=== PATIENT | female | born 1940 | race Caucasian/White ===

== ENCOUNTER 2024-10-15 16:40 | Emergency (ER) | payer MEDICARE, SELFPAY ==
[2024-10-15 16:42] VITALS: BP 123/72
[2024-10-15 16:47] VITALS: BP 123/72
[2024-10-15 17:00] VITALS: BP 112/68
[2024-10-15] MEDS: TYLENOL 650 MG PO (17:12)
[2024-10-15 17:17] LABS: % Basophils 0.7 % (0-2); % Eosinophils 0.1 % (0-6); % Immature Granulocytes 0.5 % (0-0.5); % Lymphocytes 4.1 % (20.5-51.1); % Monocytes 5.4 % (1.7-9.3); % Neutrophils 89.2 % (42.2-75.2); Absolute Basophils 0.1 10^3/uL (0-0.2); Absolute Immature Granulocytes 0.1 10^3/uL (0-0.05); Absolute Lymphocytes 0.5 10^3/uL (1.2-3.4); Absolute Monocytes 0.7 10^3/uL (0.1-0.6); Absolute Neutrophils 11.4 10^3/uL (1.4-6.5); Hematocrit 40.1 % (37.0-47.0); Hemoglobin 13.4 g/dL (12.0-16.0); Mean Corp Hgb Conc. 33.4 g/dL (33.0-37.0); Mean Corpuscular Hgb 31.3 pg (27.0-31.0); Mean Corpuscular Volume 93.7 fL (81.0-99.0); Mean Platelet Volume 9.5 fL (7.4-10.4); Nucleated Red Blood Cells % 0 %; Platelet Count 178 10^3/uL (130-400); Red Blood Cell Count 4.28 10^6/uL (4.20-5.40); White Blood Cell Count 12.8 10^3/uL (4.8-10.8)
[2024-10-15 17:30] LABS: COVID-19 Antigen Negative (Negative)
[2024-10-15 17:31] LABS: Lactic Acid 1.6 mmol/L (0.7-2.0)
[2024-10-15 17:32] LABS: ALT (SGPT) 29 U/L (0-35); AST (SGOT) 31 U/L (14-36); Albumin 3.8 g/dl (3.5-5.0); Alkaline Phosphatase 86 U/L (38-126); Blood Urea Nitrogen 28 mg/dl (7-17); Calcium 8.9 mg/dl (8.4-10.2); Carbon Dioxide 29 mmol/L (22-30); Chloride 101 mmol/L (98-107); Glucose 124 mg/dl (70-99); Potassium 3.8 mmol/L (3.5-5.1); Sodium 135 mmol/L (135-145); Total Bilirubin 0.9 mg/dl (0.2-1.3); Total CK 105 U/L (30-135); Total Protein 6.2 g/dl (6.3-8.2); eGFR > 60.00
[2024-10-15 18:00] VITALS: BP 105/64
--- NOTE | 2024-10-15 20:00 | EDRN ---
Report received, introduced myself to patient and family, did a straight cath for urine, also cleaned patient up prior to, slightly incontinent to stool, clean brief on and straight cath performed and emptied bladder, then patient went to CT
[2024-10-15 20:12] VITALS: BMI 24.6
[2024-10-15 20:27] LABS: Urine Albumin 1+ (Neg - Trace); Urine Bilirubin Negative (Negative); Urine Character Clear (Clear); Urine Color Yellow; Urine Glucose Negative (Negative); Urine Ketone Negative (Negative); Urine Leukocyte Negative (Negative); Urine Nitrite Negative (Negative); Urine Occult Blood Negative (Negative); Urine Specific Gravity 1.005 (<1.030); Urine Urobilinogen Negative (Neg - 1+)
[2024-10-15 20:36] LABS: Urine Red Blood Cell 0-2 /HPF (0-2); Urine Squamous Cell 0-2 /LPF (Few)
[2024-10-15 20:37] LABS: Urine White Cell 0-2 /HPF (0-5)
[2024-10-15 20:53] LABS: CKMB 1.1 ng/ml (0.0-3.4)
--- NOTE | 2024-10-15 21:00 | EDRN ---
Patient was able to ambulate without difficulty and tolerate oral fluids, Ivan is aware, patient to be discharged home.
--- NOTE | 2024-10-15 21:09 | ED.GENMED ---
History of Present Illness
General
Chief Complaint: Fall
Time Seen by Provider: 10/15/24 16:48
History of Present Illness
History of Present Illness:
83-year-old female presents to the emergency department for evaluation of confusion and a reported fall last night. She lives in independent living at [facility] and apparently fell in her bathroom, may have been down the ground for at least 8
to 12 hours. She is known to be febrile on arrival. Confused at baseline but markedly worse per [facility]. History is essentially unobtainable from the patient due to confusion
Review of Systems
Review of Systems
Allergies reviewed?: Yes
All Other Systems: ROS reviewed and negative except as documented in HPI and ROS
Phy Exam
Physical Exam
Physical Exam:
GEN: Ill-appearing, tremulous
HEENT: Oral mucosa dry, no scleral icterus
Cardiac: Tachycardic, regular
Lung: No respiratory distress, no tachypnea, lungs clear to auscultation bilaterally
Abdomen: Flat, nontender
MSK: No gross deformity or injuries
Skin: Good color, no pallor or jaundice, no rashes
Neuro: Alert, pleasantly confused, moving all extremities freely
Psych: Calm, cooperative
Sepsis
Sepsis Screening
Sepsis Assessment: Sepsis Ruled Out
Sepsis Screen
Sepsis Screen: Sepsis Ruled Out
Date: 10/15/24
Time: 23:39
Course
Orders/Labs/Results
Orders:
Orders
10/15/24 16:54
COVID-19 Antigen Urgent
Source: Nasal Swab
CPK Isoenzyme Urgent
Complete Blood Count/With Diff Urgent
Comprehensive Metabolic Panel Urgent
Lactic Acid Urgent
INF RAPID [Influenza A+B Rapid Molecular] Urgent
LEXI Source: Nasal Swab
Specimen Description:
10/15/24 16:56
ECG [Electrocardiogram (*1)] Urgent
Reason for Study: Other
Other Reason for Exam: fall
EKG- Treatment ONCE
10/15/24 17:07
CT Cervical Spine W/o Iv Contr Urgent
Comment:
Reason For Exam: unwitnessed fall
Acetaminophen [Tylenol] 650 mg PO NOW STA
10/15/24 17:08
CT Head W/o Iv Contrast Urgent
Comment:
Reason For Exam: unwitnessed fall
10/15/24 20:11
Urine Culture Reflexed from UA [Urinalysis Reflex To Culture] Urgent
Date Specimen was Collected: 10/15/24
Time Specimen was Collected: 17:08
Urine Microscopic Reflex Cult Urgent
Abnormal Lab Results
10/15/24 10/15/24
16:54 20:11
WBC 12.8 H 10^3/uL
(4.8-10.8)
MCH 31.3 H pg
(27.0-31.0)
Abs Immat Gran (auto) 0.1 H 10^3/uL
(0-0.05)
Absolute Neuts (auto) 11.4 H 10^3/uL
(1.4-6.5)
Absolute Lymphs (auto) 0.5 L 10^3/uL
(1.2-3.4)
Absolute Monos (auto) 0.7 H 10^3/uL
(0.1-0.6)
Neutrophils % 89.2 H %
(42.2-75.2)
Lymphocytes % 4.1 L %
(20.5-51.1)
BUN 28 H mg/dl
(7-17)
Glucose 124 H mg/dl
(70-99)
Total Protein 6.2 L g/dl
(6.3-8.2)
Urine Albumin (Reflex) 1+ A
(Neg - Trace)
10/15/24 16:54
10/15/24 16:54
Vital Signs
Initial and Last Documented VS:
Initial Vital Signs
Pulse Resp BP Pulse Ox
100 20 123/72 93
10/15/24 16:42 10/15/24 16:42 10/15/24 16:42 10/15/24 16:42
Last Documented Vital Signs
Temp Pulse Resp BP Pulse Ox
101.7 F H 94 14 105/64 94
10/15/24 16:52 10/15/24 18:00 10/15/24 18:00 10/15/24 18:00 10/15/24 18:00
MDM/Problems Addressed
MDM/Problems Addressed:
Patient's mental status dramatically improved with IV hydration and antipyretics. Urinalysis clear, lungs clear on exam. She did have vomiting and diarrhea yesterday thus likely viral GI source of fever. She was ambulated at time of discharge and
appeared quite well, daughter is comfortable with her being discharged and will stay with her for observation tonight
*Critical Care Note
Total Time (30-74mins, 75-104mins- exclusive of procedures): Not Applicable
ED Attending Note
-
Portions of this chart may have been created with voice recognition software.� Occasional wrong word or��sound alike� substitutions may have occurred due to the inherent limitations of voice recognition software.
Discharge Plan
Departure
Patient Disposition: Home (Routine Discharge)
Date of Disposition: 10/15/24
Time of Disposition: 21:09
Patient with high blood pressure during this ER visit?: No
Discharge Problem:
Gastroenteritis
Instructions: Viral gastroenteritis in adults
Referrals:
Gianna Veliz DO [Family Provider] -
Activity Restrictions/Additional Instructions:
Next dose of Tylenol can be given at a time after returning home, please consider giving this every 4-6 hours to control fevers
Push fluids and return to the emergency department if symptoms worsen
Interventions
Interventions:
*Risk Screen - Suicide Last Done: 10/15/24 21:42
*General Assessment Last Done: 10/15/24 16:42
*Neglect/Abuse Screening Last Done: 10/15/24 21:42
ED- Fall Risk Assessment Last Done: 10/15/24 16:55
*ED COVID-19 Vaccine History Last Done: 10/15/24 21:42
*Nursing Disposition Last Done: 10/15/24 21:42
ED-Musculoskeletal Assessment Last Done: 10/15/24 16:55
ED- Neurological Assessment Last Done: 10/15/24 16:55
ED-Skin Assessment Last Done: 10/15/24 16:55
Discharge Date and Time
Discharge Date/Time: 10/15/24 21:43
Print Language: [place]INGAP[place]
== END 2024-10-15 21:43 | disposition home or self-care (01) ==
LOC: EMR 16:40
PROVIDERS: Physician Assistant; EMERGENCY PHYSICIAN Emergency Medicine; FAMILY PHYSICIAN Internal Medicine
DX: K52.9 Noninfective gastroenteritis and colitis, unspecified (principal)
CPT/HCPCS: 99284; 70450; 72125; 80053; 81003; 81015; 82550; 82553; 83605; 85025; 87502; 87811; 93005

== ENCOUNTER 2024-12-03 01:23 | Emergency (ER) | payer MEDICARE, SELFPAY ==
[2024-12-03 01:28] VITALS: BP 132/104
[2024-12-03 01:52] VITALS: BMI 23.8
[2024-12-03] MEDS: LET TOPICAL ANESTHETIC GEL 6 ML TOPICAL (02:31)
[2024-12-03] MEDS: NSS 1000 IV (02:32)
[2024-12-03] MEDS: TYLENOL 1000 MG PO (02:32)
[2024-12-03 02:40] LABS: COVID-19 Antigen Positive (Negative)
--- NOTE | 2024-12-03 02:41 | ED.GENMED ---
History of Present Illness
General
Chief Complaint: Fever
Source: patient and family (2 daughters at bedside)
Exam Limitations: none
Time Seen by Provider: 12/03/24 01:53
Nursing documentation reviewed up to this point in time: agreed with
History of Present Illness
History of Present Illness:
This is an 84-year-old woman who resides at [facility]. She has history of dementia, hyperlipidemia, osteoarthritis. Remote history of left total hip replacement, spinal stimulator.
According to daughter she was noted to have mild cough that began yesterday, tonight her daughter was staying with her, she awoke to hear mild rustling and upon further investigation found that her mom had fallen out of bed.
She has history confusion but seems more confused tonight.
With fall out of bed she has suffered a large skin tear to her left anterior lower leg. She does not believe she struck her head. She takes no anticoagulants.
She does note mild cough, nasal congestion, admits to mild generalized headache, denies neck nor back pain, no chest pain, no shortness of breath. No abdominal pain, no nausea or vomiting, no diarrhea or constipation. She denies dysuria urgency
nor hematuria. No prior history of UTIs.
Upon arrival to the ED found to be febrile, 101.7 �F
Past History
Past History
ED Past Medical History: Hypercholesterolemia and Other (Dementia, osteoarthritis)
ED Past Surgical History: Gynecological (Hysterectomy), Orthopedic (Left total hip replacement, spine stimulator) and Other (Left inguinal hernia repair)
Social History
Tobacco: Non-smoker
Alcohol: None
Personal:
Living: assisted living ([facility])
Family History
Family History: Other (Noncontributory)
Phy Exam
Physical Exam
Physical Exam:
GENERAL: 84-year-old woman appears her stated age, awake and alert, pleasant, easily communicative, appears in no acute distress. Noted to be moderately febrile. Mild nasal, stuffy voice is noted. 2 daughters accompanying.
EYE: pupils equal and reactive. anicteric. The head is normocephalic, atraumatic.
NECK: Supple, nontender, no meningismus, no significant adenopathy.
ENT: posterior pharynx is clear, oral mucosa is moist. TM clear b/l, nares have moderately boggy turbinates with scant clear rhinorrhea.
CARDIAC: Regular rate and rhythm. no murmur.
LUNGS: Clear breath sounds bilaterally, no acute respiratory distress, no wheezes/rales/rhonchi
ABDOMEN: Soft, nondistended, without focal tenderness, no r/g, no cvat. normoactive BS.
NEUROLOGICAL: Alert and oriented x3, no focal neuro deficits. Motor strength is 5/5 bilaterally. Gross sensation is intact.
SKIN: Hot to touch and dry, normal color, no rash. Fair turgor.
MUSCULOSKELETAL: No C/C/E. peripheral pulses are full and equal b/l. There is a large, subcutaneous depth skin tear left anterior lower leg. No active bleeding. Moderate local tenderness to palpation. There is a subacute similar skin tear just
superior along the mid anterior lower leg with focal eschar in place.
PSYCH: Normal and appropriate interaction.
Course
Orders/Labs/Results
Orders:
Orders
12/03/24 02:02
0.9% Sodium Chloride 1000 ml [Nss] 1,000 ml IV BOLUS
Acetaminophen [Tylenol] 1,000 mg PO NOW STA
Lidocaine/Epinephrine/Tetracai [Let Topical Anesthetic Gel] 6 ml TOPICAL NOW STA
12/03/24 02:03
CT Head W/o Iv Contrast Urgent
Comment:
Reason For Exam: fall, confusion
CR Chest - 2 Views Urgent
Comment:
Reason For Exam: cough, fever
12/03/24 02:04
Lidocaine/Epinephrine/Tetracai [Let Topical Anesthetic Gel] 3 ml .ROUTE .[facility]
12/03/24 02:23
COVID-19 Antigen Urgent
Source: Nasal Swab
Complete Blood Count/With Diff Urgent
Comprehensive Metabolic Panel Urgent
Lactic Acid Urgent
Influenza A+B Rapid Molecular Urgent
LEXI Source: Nasal Swab
Specimen Description:
12/03/24 02:45
Blood Culture Q30M
LEXI Source: Blood/Venous
Specimen Description:
12/03/24 02:49
Blood Culture Q30M
LEXI Source: Blood/Venous
Specimen Description:
12/03/24 02:52
Lidocaine/Epinephrine/Tetracai [Let Topical Anesthetic Gel] 3 ml .ROUTE .[facility]
12/03/24 03:12
Urinalysis Reflex To Culture Urgent
Date Specimen was Collected: 12/03/24
Time Specimen was Collected: 03:09
12/03/24 03:14
Blood Culture Urgent
LEXI Source: Blood/Venous
Specimen Description:
Date Specimen was Collected: 12/03/24
Time Specimen was Collected: 03:12
12/03/24 04:08
Ibuprofen [Motrin] 600 mg PO NOW STA
12/03/24 06:09
Nirmatrelvir/Ritonavir [Paxlovid 2X150 mg-100 mg Dose Pack] 1 dose PO NOW STA
Abnormal Lab Results
12/03/24
02:23
RBC 4.10 L 10^6/uL
(4.20-5.40)
MCH 32.2 H pg
(27.0-31.0)
RDW 14.9 H %
(11.5-14.5)
Abs Immat Gran (auto) 0.1 H 10^3/uL
(0-0.05)
Absolute Lymphs (auto) 0.8 L 10^3/uL
(1.2-3.4)
Absolute Monos (auto) 1.1 H 10^3/uL
(0.1-0.6)
Immature Gran % 0.6 H %
(0-0.5)
Lymphocytes % 9.9 L %
(20.5-51.1)
Monocytes % 13.7 H %
(1.7-9.3)
BUN 21 H mg/dl
(7-17)
Glucose 124 H mg/dl
(70-99)
AST 48 H U/L
(14-36)
SARS-CoV-2 Antigen Positive A
(Negative)
12/03/24 02:23
12/03/24 02:23
Vital Signs
Initial and Last Documented VS:
Initial Vital Signs
Temp Pulse Resp BP Pulse Ox
98.9 F 104 17 132/104 96
12/03/24 01:28 12/03/24 01:28 12/03/24 01:28 12/03/24 01:28 12/03/24 01:28
Last Documented Vital Signs
Temp Pulse Resp BP Pulse Ox
98.9 F 99 20 100/64 94
12/03/24 01:28 12/03/24 03:13 12/03/24 03:13 12/03/24 03:13 12/03/24 03:13
Procedures
Laceration Closure
Left Lower Anterior Leg:
Status of Wound: clean
Size of Wound in cm: 16
Description of Wound Edges: flap-poorly vascularized (Superficial flap laceration left anterior lower leg 16 cm in total length. Flap is 7 cm in width by 5 cm in height. Subcutaneous tissue exposed beneath superficial flap.)
Preparation: cleaned with saline
Anesthesia: Topical-LET
Revision/Debridement: minor revision and irrigate-direct pressure
Wound exploration: explored to base- no FB and no tendon involvement
Type of Closure: Dermabond-skin glue (Dermabond Prineo dressing utilized to bring skin flap wound edges together.)
MDM/Problems Addressed
Differential Diagnosis Includes:
Acute febrile illness with mild URI symptoms that began yesterday. I suspect this is caused her fever but must also consider UTI, pneumonia, viral URI.
I suspect fever is because for increased confusion, fall out of bed will check CT of the head concern for occult closed head injury.
Acute febrile illness, concern for sepsis.
Will check labs including lactic acid, blood cultures.
CT of the head, chest x-ray.
Will give Tylenol for fever, initiate IV fluids.
Will plan for repair of large skin tear left anterior lower leg.
Chronic conditions affecting care: Neurological disorder
*Radiology
Radiology exam reviewed: preliminary read by ED provider (Chest x-ray concerning for small focal infiltrate right lower lobe versus chronic changes. No old films to compare.) and radiology read reviewed (CT of the head shows no acute findings.)
*Pulse Oximetry
Patient hypoxic: no
*Staff Auditor Interpretation
Rate: normal
Interpretation: normal
Rhythm: sinus
*Critical Care Note
Total Time (30-74mins, 75-104mins- exclusive of procedures): Not Applicable
Update Note
Update Note:
Labs are unremarkable save for COVID testing is positive. Urinalysis is negative.
I question tiny hazy infiltrate right base on chest x-ray. No old chest x-rays to compare.
Lungs remain clear to auscultation and with COVID-positive, small infiltrate is likely viral in nature.
CT of the head is pending.
Plan is to initiate Paxlovid. Patient is maintained on simvastatin, losartan. Will plan to hold simvastatin while on Paxlovid.
06:15
After treatment of fever and IV fluids patient is much more brighter, less confused, less agitated.
Left lower leg skin flap repaired with Dermabond Prineo dressing.
Patient initially unable to eat ambulate with assistance to the bathroom and her plan was to admit to the hospital service however daughters feel that they will be able to care for their mother over the next several days and they request to take her
home.
Along with 5-day course of Paxlovid for COVID, will add a course of doxycycline for wound infection prevention as well as coverage for potential focal right lower lobe pneumonia that I suspect is COVID related.
She continues to have no respiratory distress, no hypoxia.
ED Attending Note
-
Portions of this chart may have been created with voice recognition software.� Occasional wrong word or��sound alike� substitutions may have occurred due to the inherent limitations of voice recognition software.
Discharge Plan
Departure
Patient Disposition: Home (Routine Discharge)
Date of Disposition: 12/03/24
Time of Disposition: 06:17
Patient with high blood pressure during this ER visit?: No
Condition: Good
Discharge Problem:
COVID-19, flap laceration left lower leg, exacerbation of dementia
Instructions: Fever, Adult (DC), Laceration Repair With Glue ED, COVID-19 - ED discharge instructions
Prescriptions:
New
Paxlovid 300 mg (150 mg x 2)-100 mg tablets,dose pack
See Rx Instructions .ROUTE .COMPLEX Qty: 30 0RF
Rx Instructions:
take TWO 150 mg tablets of nirmatrelvir with ONE 100 mg tablet of ritonavir twice daily for 5 days
doxycycline monohydrate 100 mg capsule
100 mg PO BID Qty: 14 1RF
Referrals:
Gianna Veliz, [Family Provider] - Call in 1-3 days for appt
Activity Restrictions/Additional Instructions:
While on Paxlovid for the next 5 days, hold the simvastatin. You may resume simvastatin 1 day after Paxlovid is completed.
Keep left lower extremity wound clean and dry. Apply a dry dressing once daily.
Follow-up with primary care physician next week for recheck.
Interventions
Interventions:
*Risk Screen - Suicide Last Done: 12/03/24 01:28
*General Assessment Last Done: 12/03/24 01:28
*Neglect/Abuse Screening Last Done: 12/03/24 01:28
*ED COVID-19 Vaccine History Last Done: 12/03/24 01:28
ED- Neurological Assessment Last Done: 12/03/24 02:00
ED-Skin Assessment Last Done: 12/03/24 02:00
Discharge Date and Time
Print Language: AZERI
[2024-12-03 02:45] LABS: % Basophils 1.2 % (0-2); % Eosinophils 1.2 % (0-6); % Immature Granulocytes 0.6 % (0-0.5); % Lymphocytes 9.9 % (20.5-51.1); % Monocytes 13.7 % (1.7-9.3); % Neutrophils 73.4 % (42.2-75.2); Absolute Basophils 0.1 10^3/uL (0-0.2); Absolute Eosinophils 0.1 10^3/uL (0-0.7); Absolute Immature Granulocytes 0.1 10^3/uL (0-0.05); Absolute Lymphocytes 0.8 10^3/uL (1.2-3.4); Absolute Monocytes 1.1 10^3/uL (0.1-0.6); Absolute Neutrophils 5.7 10^3/uL (1.4-6.5); Hematocrit 38.3 % (37.0-47.0); Hemoglobin 13.2 g/dL (12.0-16.0); Mean Corp Hgb Conc. 34.5 g/dL (33.0-37.0); Mean Corpuscular Hgb 32.2 pg (27.0-31.0); Mean Corpuscular Volume 93.4 fL (81.0-99.0); Mean Platelet Volume 9.3 fL (7.4-10.4); Nucleated Red Blood Cells % 0 %; Platelet Count 205 10^3/uL (130-400); Red Cell Dist. Width 14.9 % (11.5-14.5); White Blood Cell Count 7.8 10^3/uL (4.8-10.8)
[2024-12-03 02:59] LABS: Lactic Acid 1.4 mmol/L (0.7-2.0)
[2024-12-03 03:04] LABS: ALT (SGPT) 35 U/L (0-35); AST (SGOT) 48 U/L (14-36); Albumin 4.3 g/dl (3.5-5.0); Alkaline Phosphatase 75 U/L (38-126); Blood Urea Nitrogen 21 mg/dl (7-17); Calcium 9.2 mg/dl (8.4-10.2); Carbon Dioxide 28 mmol/L (22-30); Chloride 99 mmol/L (98-107); Estimated Creatinine Clearance 45 ml/min; Glucose 124 mg/dl (70-99); Potassium 4.5 mmol/L (3.5-5.1); Sodium 135 mmol/L (135-145); Total Bilirubin 0.7 mg/dl (0.2-1.3); Total Protein 6.8 g/dl (6.3-8.2); eGFR > 60.00
[2024-12-03 03:13] VITALS: BP 100/64
[2024-12-03 03:32] LABS: Urine Albumin Negative (Neg - Trace); Urine Bilirubin Negative (Negative); Urine Character Clear (Clear); Urine Color Yellow; Urine Glucose Negative (Negative); Urine Ketone Negative (Negative); Urine Leukocyte Negative (Negative); Urine Nitrite Negative (Negative); Urine Occult Blood Negative (Negative); Urine Urobilinogen Negative (Neg - 1+)
[2024-12-03] MEDS: MOTRIN 600 MG PO (04:16)
[2024-12-03 06:32] VITALS: BP 110/75
[2024-12-03] MEDS: PAXLOVID 2X150 MG-100 MG DOSE PACK 1 DOSE PO (06:35)
== END 2024-12-03 06:55 | disposition home or self-care (01) ==
LOC: EMR 01:23
PROVIDERS: EMERGENCY PHYSICIAN Emergency Medicine; FAMILY PHYSICIAN Internal Medicine
DX: U07.1 COVID-19 (principal); S81.812A Laceration without foreign body, left lower leg, initial encounter; W06.XXXA Fall from bed, initial encounter; E78.00 Pure hypercholesterolemia, unspecified; M19.90 Unspecified osteoarthritis, unspecified site; F03.90 Unspecified dementia, unspecified severity, without behavioral disturbance, psychotic disturbance, mood disturbance, and anxiety; Z90.710 Acquired absence of both cervix and uterus; Z96.642 Presence of left artificial hip joint
CPT/HCPCS: 99284; 12005; 96360; 96361; 70450; 71046; 80053; 81003; 83605; 85025; 87040; 87502; 87811

== ENCOUNTER 2024-12-13 14:41 | Emergency (ER) | payer MEDICARE, SELFPAY ==
[2024-12-13 14:49] VITALS: BP 102/64
[2024-12-13 15:33] LABS: % Basophils 0.4 % (0-2); % Lymphocytes 9.3 % (20.5-51.1); % Monocytes 10.5 % (1.7-9.3); % Neutrophils 74.8 % (42.2-75.2); Absolute Basophils 0.1 10^3/uL (0-0.2); Absolute Eosinophils 0.1 10^3/uL (0-0.7); Absolute Immature Granulocytes 0.5 10^3/uL (0-0.05); Absolute Lymphocytes 1.2 10^3/uL (1.2-3.4); Absolute Monocytes 1.3 10^3/uL (0.1-0.6); Absolute Neutrophils 9.5 10^3/uL (1.4-6.5); Hematocrit 33.9 % (37.0-47.0); Hemoglobin 11.6 g/dL (12.0-16.0); Mean Corp Hgb Conc. 34.2 g/dL (33.0-37.0); Mean Corpuscular Hgb 31.4 pg (27.0-31.0); Mean Corpuscular Volume 91.6 fL (81.0-99.0); Mean Platelet Volume 8.7 fL (7.4-10.4); Nucleated Red Blood Cells % 0 %; Platelet Count 332 10^3/uL (130-400); Red Cell Dist. Width 14.7 % (11.5-14.5); White Blood Cell Count 12.7 10^3/uL (4.8-10.8)
[2024-12-13 15:42] LABS: ALT (SGPT) 36 U/L (0-35); AST (SGOT) 25 U/L (14-36); Albumin 3.2 g/dl (3.5-5.0); Alkaline Phosphatase 70 U/L (38-126); Blood Urea Nitrogen 29 mg/dl (7-17); Calcium 8.7 mg/dl (8.4-10.2); Carbon Dioxide 27 mmol/L (22-30); Chloride 98 mmol/L (98-107); Glucose 109 mg/dl (70-99); Potassium 4.3 mmol/L (3.5-5.1); Sodium 129 mmol/L (135-145); Total Bilirubin 0.4 mg/dl (0.2-1.3); Total Protein 5.6 g/dl (6.3-8.2); eGFR > 60.00
[2024-12-13 15:54] LABS: Troponin I < 0.012 ng/ml
[2024-12-13 16:08] VITALS: BP 129/73
--- NOTE | 2024-12-13 16:17 | ED.GENMED ---
History of Present Illness
General
Chief Complaint: Abnormal Lab Value
Source: patient and family (son at bedside)
Exam Limitations: none
Time Seen by Provider: 12/13/24 16:14
Nursing documentation reviewed up to this point in time: agreed with
History of Present Illness
History of Present Illness:
84-year-old female from [facility] with history of dementia, HLD, myositis, arthritis, was diagnosed with COVID 10 days ago and is here today for persistent general weakness, dizziness when she stands, mild abdominal pain, no BM for past 2 days.
Son states PCP at [place] did lab work last week and pt told sodium is low. Pt states she's been eating and drinking well.
Pt denies CP,SOB, n/v. Feels constipated.
Past History
Past History
ED Past Medical History: Hypercholesterolemia and Other (Dementia, osteoarthritis)
ED Past Surgical History: Gynecological (Hysterectomy), Orthopedic (Left total hip replacement, spine stimulator) and Other (Left inguinal hernia repair)
Social History
Tobacco: Non-smoker
Alcohol: None
Personal:
Living: assisted living ([facility] independent living)
Family History
Family History: Other (Noncontributory)
Review of Systems
Review of Systems
Allergies reviewed?: Yes
All Other Systems: ROS reviewed and negative except as documented in HPI and ROS
Constitutional: Denies fever, fatigue or chills
Respiratory: Denies trouble breathing
Cardiac: Denies chest pain, palpitations or syncope
ABD/GI: Reports constipated; Denies abdominal pain, nausea, vomiting, diarrhea, bloody stools, black stools or anorexia
: Denies dysuria or difficulty voiding
Skin: Reports other (wounds LLE from trauma, followed by PCP, finished Doxycycline, dressings changes QOD by daughter who states they are slowly improving. )
Neurological: Reports dizzy (when she stands); Denies headache
Phy Exam
Physical Exam
Physical Exam:
GENERAL: No acute distress. A&Ox3.
CONSTITUTIONAL: Afebrile.
EYES: clear, conjunctivae normal
ENMT: moist mucus membranes, Pharynx nl
RESPIRATORY: Regular respirations, nonlabored, lungs clear.
CARDIOVASCULAR: Regular rate and rhythm, no murmurs, no rubs.
GI: Soft, nontender, normal BS
MUSCULOSKELETAL: Moves with ease. Well perfused. No edema
SKIN: Warm, dry, pink. Kerlix dressing on left lower extremity wound, small amount of dry serous drainage, no significant swelling, distal neurovascular intact
PSYCH: Normal mood and affect. Well kept, interactive and appropriate
NEUROLOGIC: Awake, alert and oriented. No focal neurological deficits
Course
Orders/Labs/Results
Orders:
Orders
12/13/24 14:51
EKG [Electrocardiogram (*1)] Urgent
Reason for Study: Vertigo / Dizzy
EKG- Treatment ONCE
12/13/24 15:10
Complete Blood Count/With Diff Urgent
Comprehensive Metabolic Panel Urgent
TSH Reflex To Free T4 Urgent
Comment: ADDON
Troponin I Urgent
12/13/24 16:17
0.9% Sodium Chloride 1000 ml [Nss] 1,000 ml IV BOLUS
12/13/24 16:30
CR Abdomen - 1 View Urgent
Comment:
Reason For Exam: constipation
12/13/24 17:08
Osmolality, Random Urine Urgent
Date Specimen was Collected: 12/13/24
Time Specimen was Collected: 16:30
Comment: ADDON
Urinalysis Reflex To Culture Urgent
Date Specimen was Collected: 12/13/24
Time Specimen was Collected: 16:30
Urine Sodium Urgent
Date Specimen was Collected: 12/13/24
Time Specimen was Collected: 16:30
Comment: ADDON
12/13/24 18:18
Phosphate Enema [Fleet Phosphate Enema-Adult] 135 ml RECTAL NOW STA
12/13/24 18:33
Add On- LAB Urgent
Tests Added?: urine osmolality, Urine Sodium
12/13/24 18:35
Add On- LAB Urgent
Tests Added?: tsh to free t4
12/13/24 19:18
BMP [Basic Metabolic Panel] Urgent
Complete Blood Count/No Diff Urgent
Abnormal Lab Results
12/13/24 12/13/24 12/13/24
15:10 17:08 19:18
WBC 12.7 H 10^3/uL 16.1 H 10^3/uL
(4.8-10.8) (4.8-10.8)
RBC 3.70 L 10^6/uL 3.89 L 10^6/uL
(4.20-5.40) (4.20-5.40)
Hgb 11.6 L g/dL
(12.0-16.0)
Hct 33.9 L % 35.5 L %
(37.0-47.0) (37.0-47.0)
MCH 31.4 H pg 31.6 H pg
(27.0-31.0) (27.0-31.0)
RDW 14.7 H % 14.7 H %
(11.5-14.5) (11.5-14.5)
Abs Immat Gran (auto) 0.5 H 10^3/uL
(0-0.05)
Absolute Neuts (auto) 9.5 H 10^3/uL
(1.4-6.5)
Absolute Monos (auto) 1.3 H 10^3/uL
(0.1-0.6)
Immature Gran % 4.0 H %
(0-0.5)
Lymphocytes % 9.3 L %
(20.5-51.1)
Monocytes % 10.5 H %
(1.7-9.3)
Sodium 129 L mmol/L 133 L mmol/L
(135-145) (135-145)
BUN 29 H mg/dl 24 H mg/dl
(7-17) (7-17)
Creatinine 0.5 L mg/dL
(0.6-1.0)
Glucose 109 H mg/dl 125 H mg/dl
(70-99) (70-99)
ALT 36 H U/L
(0-35)
Total Protein 5.6 L g/dl
(6.3-8.2)
Albumin 3.2 L g/dl
(3.5-5.0)
Urine Sodium < 5 L mmol/L
(30-90)
12/13/24 19:18
12/13/24 19:18
Vital Signs
Initial and Last Documented VS:
Initial Vital Signs
Temp Pulse Resp BP Pulse Ox
97.8 F 99 17 102/64 96
12/13/24 14:49 12/13/24 14:49 12/13/24 14:49 12/13/24 14:49 12/13/24 14:49
Last Documented Vital Signs
Temp Pulse Resp BP Pulse Ox
97.8 F 102 30 120/91 96
12/13/24 14:49 12/13/24 18:45 12/13/24 18:45 12/13/24 18:00 12/13/24 18:45
MDM/Problems Addressed
Differential Diagnosis Includes:
Dehydration, UTI,
MDM/Problems Addressed:
84-year-old female from [facility] with history of dementia, HLD, myositis, arthritis, was diagnosed with COVID 10 days ago and is here today for persistent general weakness, dizziness when she stands, mild abdominal pain, no BM for past 2 days.
Son states PCP at [place] did lab work last week and pt told sodium is low. Pt states she's been eating and drinking well.
Pt denies CP,SOB, n/v. Feels constipated.
4:30 PM:
CBC: WBC 12.7
CMP: Sodium 129, BUN 29 otherwise normal. IV fluids infusing for mild dehydration and hyponatremia
TSH WNL
UA unremarkable
6:30 PM:
1 view abdomen x-ray reveals moderate stool throughout the colon, patient's rectal exam has large amount of soft stool. Fleets enema ordered
7:30 PM:
Patient had a large bowel movement after the enema.
Patient states she is hungry and would like to eat, she has been alert, pleasant, visiting with family the entire time, no acute distress.
Patient is out of bed, ambulating, pleasant, alert, finished a lunch box meal
Wound on left lower extremity unwrapped, daughter states the area is slowly improving. She changes the dressing every other day. There is no pus drainage, there is local erythema, no significant swelling. Wound redressed
Doubt the elevated WBC is from the leg wound.
There are no other signs of systemic infection.
She is feeling well and is afebrile.
Repeat CBC: WBC 16.1
Repeat BMP: Sodium 133
Urine sodium less than 5 L, urine osmolality normal
Consulted nephrology Dr. Moreno who agrees patient can go home, he recommends limiting p.o. fluid intake to 50 mL daily and repeat labs
Patient and family are comfortable with this plan
Patient is stable for discharge.
*Critical Care Note
Total Time (30-74mins, 75-104mins- exclusive of procedures): Not Applicable
ED Attending Note
-
Portions of this chart may have been created with voice recognition software.� Occasional wrong word or��sound alike� substitutions may have occurred due to the inherent limitations of voice recognition software.
Discharge Plan
Departure
Patient Disposition: Home (Routine Discharge)
Date of Disposition: 12/13/24
Time of Disposition: 20:02
Patient with high blood pressure during this ER visit?: No
Condition: Good
Discharge Problem:
Acute hyponatremia, Leukocytosis
Instructions: Hyponatremia
Prescriptions:
No Action
Paxlovid 300 mg (150 mg x 2)-100 mg tablets,dose pack
See Rx Instructions .ROUTE .COMPLEX Qty: 30 0RF
Rx Instructions:
take TWO 150 mg tablets of nirmatrelvir with ONE 100 mg tablet of ritonavir twice daily for 5 days
doxycycline monohydrate 100 mg capsule
100 mg PO BID Qty: 14 1RF
Referrals:
Gianna Veliz, DO [Family Provider] - Call in 1-3 days for appt
Activity Restrictions/Additional Instructions:
As we discussed, Your sodium may be low from drinking too much in the past week.
I talked to the pulling unit operator Dr. Moreno. He recommends limiting your fluid intake to 50 ounces a day and repeat your blood work in 5-7 days.
Your White blood cell count is elevated. This may simply be reactive from stress, I doubt it is from the wound on your leg as that doesn't look too bad and as you agree, does appear stable. You don't have any sign of infection anywhere else.
Have your BMP and CBC rechecked in 5-7 days.
Return here immediately for fever, chills, vomiting, if the redness at your leg wound spreads more than 2 inches, or feeling sicker in any way.
Interventions
Interventions:
*Risk Screen - Suicide Last Done: 12/13/24 14:50
*General Assessment Last Done: 12/13/24 14:50
*Neglect/Abuse Screening Last Done: 12/13/24 14:50
*ED COVID-19 Vaccine History Last Done: 12/13/24 14:50
*Nursing Disposition Last Done: 12/13/24 20:51
Discharge Date and Time
Discharge Date/Time: 12/13/24 20:51
Print Language: [place] CITIZ[place]
[2024-12-13] MEDS: NSS 1000 IV (16:59)
[2024-12-13 18:00] VITALS: BP 120/91
[2024-12-13 18:35] LABS: Urine Albumin Negative (Neg - Trace); Urine Bilirubin Negative (Negative); Urine Character Clear (Clear); Urine Color Yellow; Urine Glucose Negative (Negative); Urine Ketone Negative (Negative); Urine Leukocyte Negative (Negative); Urine Nitrite Negative (Negative); Urine Occult Blood Negative (Negative); Urine Specific Gravity 1.015 (<1.030); Urine Urobilinogen Negative (Neg - 1+)
[2024-12-13] MEDS: FLEET PHOSPHATE ENEMA-ADULT 135 ML RECTAL (18:52)
[2024-12-13 18:59] LABS: Osmolality Urine 531 mOsm/kg (300-900)
[2024-12-13 19:05] LABS: Urine Sodium < 5 mmol/L (30-90)
[2024-12-13 19:27] LABS: Hematocrit 35.5 % (37.0-47.0); Hemoglobin 12.3 g/dL (12.0-16.0); Mean Corp Hgb Conc. 34.6 g/dL (33.0-37.0); Mean Corpuscular Hgb 31.6 pg (27.0-31.0); Mean Corpuscular Volume 91.3 fL (81.0-99.0); Mean Platelet Volume 8.3 fL (7.4-10.4); Platelet Count 337 10^3/uL (130-400); Red Blood Cell Count 3.89 10^6/uL (4.20-5.40); Red Cell Dist. Width 14.7 % (11.5-14.5); White Blood Cell Count 16.1 10^3/uL (4.8-10.8)
[2024-12-13 19:40] LABS: Blood Urea Nitrogen 24 mg/dl (7-17); Calcium 8.7 mg/dl (8.4-10.2); Carbon Dioxide 26 mmol/L (22-30); Chloride 100 mmol/L (98-107); Glucose 125 mg/dl (70-99); Potassium 4.7 mmol/L (3.5-5.1); Sodium 133 mmol/L (135-145); eGFR > 60.00
== END 2024-12-13 20:51 | disposition home or self-care (01) ==
LOC: EMR 14:41
PROVIDERS: Emergency Medicine; Registered Nurse; EMERGENCY PHYSICIAN Emergency Medicine; FAMILY PHYSICIAN Internal Medicine
DX: R42 Dizziness and giddiness (principal); R10.9 Unspecified abdominal pain; K59.00 Constipation, unspecified; E87.1 Hypo-osmolality and hyponatremia; D72.829 Elevated white blood cell count, unspecified; U07.1 COVID-19; F03.90 Unspecified dementia, unspecified severity, without behavioral disturbance, psychotic disturbance, mood disturbance, and anxiety; E78.00 Pure hypercholesterolemia, unspecified; M60.9 Myositis, unspecified; M19.90 Unspecified osteoarthritis, unspecified site; Z96.642 Presence of left artificial hip joint; Z88.8 Allergy status to other drugs, medicaments and biological substances
CPT/HCPCS: 99284; 96360; 74018; 80048; 80053; 81003; 83935; 84300; 84443; 84484; 85025; 85027; 93005

== ENCOUNTER → 2025-03-28 09:48 | Outpatient (REF) | payer MEDICARE, SELFPAY | LOC: RAD 09:48 | PROVIDERS: ATTENDING PHYSICIAN Internal Medicine | DX: R13.19 Other dysphagia (principal) | CPT/HCPCS: 74221 ==